=== PATIENT | male | born 1990 | race Two or more races ===

== ENCOUNTER 2024-11-16 17:21 | Emergency (ER) | payer OTHER, SELFPAY ==
[~2024-11-16] VITALS: Ht 175.3 cm; Wt 85.8 kg
[2024-11-16 20:30] VITALS: BP 133/79; TEMP 97.8; O2SAT 97
[2024-11-16] MEDS: IBUPROFEN 600MG TAB PO ONE (20:31)
[2024-11-16] MEDS: ACETAMINOPHEN 325 MG TAB PO ONE (20:32)
== END 2024-11-16 20:34 | disposition home or self-care (01) ==
LOC: M ED 17:21
DX: S00.81XA Abrasion of other part of head, initial encounter (principal); S40.011A Contusion of right shoulder, initial encounter; V03.90XA Pedestrian on foot injured in collision with car, pick-up truck or van, unspecified whether traffic or nontraffic accident, initial encounter; Y92.410 Unspecified street and highway as the place of occurrence of the external cause; Y93.89 Activity, other specified; Y99.9 Unspecified external cause status

== ENCOUNTER 2024-11-25 12:02 | Emergency (ER) | payer MEDICAID, OTHER, SELFPAY ==
[~2024-11-25] VITALS: Ht 172.7 cm; Wt 85.2 kg
[2024-11-25 12:04] VITALS: BP 131/79; TEMP 98.1; O2SAT 99
[2024-11-25] MEDS: ACETAMINOPHEN 325 MG TAB PO ONE (14:14)
[2024-11-25] MEDS: LIDOCAINE 5% (LIDODERM) PATCH TD ONE (14:14)
[2024-11-25] MEDS: ONDANSETRON 4MG ORAL DISINTEGRATING TAB PO ONE (14:14)
[2024-11-25] MEDS: tiZANidine 4 MG TAB PO ONE (14:14)
[2024-11-25] MEDS ORDERED: TIZA4CAP PO (14:25)
[2024-11-25] MEDS ORDERED: ACET-907 PO (14:25)
[2024-11-25] MEDS ORDERED: IBUP-1022 PO (14:25)
[2024-11-25] MEDS ORDERED: LIDO5DIS41 TOP (14:25)
[2024-11-25] MEDS ORDERED: ONDA-282 PO (14:29)
== END 2024-11-25 15:05 | disposition home or self-care (01) ==
LOC: M ED 12:02
DX: S06.0X0D Concussion without loss of consciousness, subsequent encounter (principal); S13.4XXD Sprain of ligaments of cervical spine, subsequent encounter; M75.41 Impingement syndrome of right shoulder; V03.90XD Pedestrian on foot injured in collision with car, pick-up truck or van, unspecified whether traffic or nontraffic accident, subsequent encounter; Y92.410 Unspecified street and highway as the place of occurrence of the external cause; Y93.9 Activity, unspecified; Y99.9 Unspecified external cause status